=== PATIENT | female | born 1950 | race Caucasian/White ===

== ENCOUNTER 2021-03-16 11:44 | Emergency (ER) | payer MEDICARE ==
[2021-03-16] MEDS ORDERED: predniSONE 20 MG TAB ONE (12:20)
== END 2021-03-16 12:30 | disposition home or self-care (01) ==
LOC: NAV ERS 11:44
DX: S90.862A Insect bite (nonvenomous), left foot, initial encounter (principal); S90.861A Insect bite (nonvenomous), right foot, initial encounter; Z79.899 Other long term (current) drug therapy; M19.90 Unspecified osteoarthritis, unspecified site; W57.XXXA Bitten or stung by nonvenomous insect and other nonvenomous arthropods, initial encounter
CPT/HCPCS: 99282; J7512